=== PATIENT | female | born 1980 | race American Indian/Alaskan Native ===

== ENCOUNTER 2021-08-07 09:59 | Outpatient (CLI) | payer MEDICAID ==
--- NOTE | 2021-08-07 12:49 | XRay Report ---
CHEST 2 VIEWS INDICATION / CLINICAL INFORMATION: MORBID OBESITY. COMPARISON: None available. FINDINGS: SUPPORT DEVICES: None. HEART / MEDIASTINUM: No significant abnormality. LUNGS / PLEURA: No significant pulmonary or pleural abnormality. No pneumothorax. ADDITIONAL FINDINGS: No significant additional findings. IMPRESSION: 1. No acute findings. Signer Name: Anselmo Julian Jr, MD Signed: 08/07/2021 12:45 PM Workstation Name: [id number]
--- NOTE | 2021-08-07 12:50 | Fluoroscopy Report ---
BARIUM SWALLOW Indication: E66.01. Morbid obesity. Evaluation for gastric sleeve. Technique: Single and double contrast barium technique utilized to evaluate the esophagus. FINDINGS: To begin the exam, swallowing was evaluated in the lateral position under direct fluorosco py. Swallowing was normal. No mucosal irregularity, mass, mass effect, or critical stenosis. There were no abnormal tertiary c ontractions as seen with dysmotility. No gastroesophageal reflux. IMPRESSION: Unremarkable exam. Fluoroscopic time: 2.3 minutes Number of fluoroscopic images: 25 Signer Name: Anselmo Julian Jr, MD Signed: 08/07/2021 12:46 PM Workstation Name: [id number]
== END 2021-08-07 10:00 | disposition home or self-care (01) ==
LOC: FLUORO 09:59
PROVIDERS: ATTEND Surgery
DX: Z01.818 Encounter for other preprocedural examination (principal); E66.01 Morbid (severe) obesity due to excess calories; K30 Functional dyspepsia
CPT/HCPCS: 71046; 74220

== ENCOUNTER 2021-08-10 11:00 | Outpatient (CLI) | payer MEDICAID | END 2021-08-10 11:01 | disposition home or self-care (01) | LOC: SLR 11:00 | PROVIDERS: ATTEND Surgery | DX: G47.30 Sleep apnea, unspecified (principal) | CPT/HCPCS: G0399 ==

== ENCOUNTER 2021-09-08 07:29 | Day surgery (SDC) | payer MEDICAID ==
[~2021-09-08 07:29] MED LIST: SODIUM CHLORIDE 0.9% 1000 ML 1,000 ML IV SCH
[2021-09-08] MEDS ORDERED: WATER FOR IRRIG STERILE 1,000 ML BOTTLE ONE (08:25)
[2021-09-08] MEDS ORDERED: WATER FOR IRRIG STERILE 250 ML BOTTLE IR ONE (08:25)
--- NOTE | 2021-09-08 08:44 | Anesthesia Consultation ---
Anesthesia Consult and Med Hx Date of service: 09/08/21 - Airway Anesthetic Teeth Evaluation: Good, Caps (upper incisors) ROM Head & Neck: Adequate Mental/Hyoid Distance: Adequate Mallampati Class: Class III Intubation Access Assessment: Possibly Difficult - Pre-Operative Health Status ASA Pre-Surgery Classification: ASA3 Proposed Anesthetic Plan: MAC - Pulmonary Hx Smoking: No Hx Respiratory Symptoms: No - Cardiovascular System Hx Hypertension: Yes - Central Nervous System CVA: No - Endocrine Hx Renal Disease: No Hx Liver Disease: No Hx Insulin Dependent Diabetes: No Hx Non-Insulin Dependent Diabetes: No Hx Thyroid Disease: No - Other Systems Hx Obesity: Yes (BMI 47.3) - Additional Comments Anesthesia Medical History Comments: No hx anesthetic complications.
--- NOTE | 2021-09-08 08:44 | Anesthesia Day of Surgery ---
Anesthesia Day of Surgery - Day of Surgery Patient Examined: Yes Patient H&P Reviewed: Yes Patient is NPO: Yes
[2021-09-08] MEDS ORDERED: LIDOCAINE MPF (2%) 20 MG/1 ML VIAL 5 ML ONE (10:48)
[2021-09-08] MEDS ORDERED: propofoL 200 MG/20 ML VIAL IV ONE ×2 (10:48)
--- NOTE | 2021-09-08 10:53 | Operative Report ---
Operative Report Operative Report: DATE: 09/08/2021 SURGERY: Upper endoscopy. SURGEON: Nicolas Swift M.D. PROCEDURE: EGD with biopsy PRE OP DX: morbid obesity, GERD POST OP DX: morbid obesity, GERD TYPE OF ANESTHESIA: MAC. ESTIMATED BLOOD LOSS: None. COMPLICATIONS: None. SPECIMENS REMOVED: antral biopsy FINDINGS: 1. Small hiatal hernia. 2. Otherwise, normal esophagus, stomach and first portion of duodenum. INDICATIONS:INDICATION FOR PROCEDURE: Patient is a 41-year-old female with a long history of morbid obesity. She is planned to have a weight loss procedure and is here for preoperative planning EGD. PROCEDURE DETAILS: After consent was reviewed, patient was taken back to the operating room where patient was placed in the left lateral decubitus position and a bite block was placed in the mouth. After a time-out was called, MAC anesthesia was initiated. I then passed the endoscope into her oropharynx, into her esophagus, visualized the entire esophagus, which was all within normal limits. Z-line was noted to about 40cm from incisors. I then visualized the stomach and the first portion of the duodenum and there were no abnormalities I could clearly visualize except for antral gastritis. A cold forceps biopsy of the antrum was taken and will be sent to pathology to evaluate for H.pylori. I then retroflexed the scope in the stomach and visualized the hiatus and I could see a small hiatal hernia. I then desufflated the stomach and removed the endoscope. Patient tolerated procedure well and was transferred to recovery room in good and stable condition.
--- NOTE | 2021-09-08 10:54 | Discharge Summary ---
Providers - Providers Date of Admission: 09/08/2021 Date of discharge: 09/08/21 Attending physician: COLLEEN CHAMBERS MD Primary care physician: SERVANDO WAGGONER Hospitalization Reason for admission: pre-op planning egd Condition: Good Procedures: egd with bx Hospital course: Pt presented for a pre-op EGD as part of planning for up coming bariatric surgery. Procedure was uneventful and pt recovered well and was d ischarged to home. Disposition: 01 HOME / SELF CARE / HOMELESS Final Discharge Diagnosis (Prints w/discharge instructions): morbid obesity, gerd Core Measure Documentation - Palliative Care Palliative Care/ Comfort Measures: Not Applicable - Core Measures Any of the following diagnoses?: none Exam - Physical Exam Narrative exam: unchanged from pre-op Plan Activity: advance as tolerated Diet: low carbohydrate Follow up with: SERVANDO WAGGONER MD [Primary Care Provider] - 7 Days
[2021-09-08 14:33] VITALS: BP 132/80
--- NOTE | 2021-09-08 14:59 | Post Anesthesia Evaluation ---
- Post Anesthesia Evaluation Patient Participated: Yes Airway Patent: Yes Stable Respiratory Function: Yes Nausea/Vomiting: No Temp > 96.8F: Yes Pain Manageable: Yes Adequeate Hydration: Yes Anesthesia Complications: No
== END 2021-09-08 11:35 | disposition home or self-care (01) ==
LOC: GIO 07:29
PROVIDERS: ATTEND Surgery
DX: K21.9 Gastro-esophageal reflux disease without esophagitis (principal); E66.01 Morbid (severe) obesity due to excess calories; K44.9 Diaphragmatic hernia without obstruction or gangrene; K29.70 Gastritis, unspecified, without bleeding; K31.89 Other diseases of stomach and duodenum; I10 Essential (primary) hypertension; Z79.899 Other long term (current) drug therapy; Z68.42 Body mass index [BMI] 45.0-49.9, adult
CPT/HCPCS: 43239; 81025; 88305; 88342; J2704; J7030

== ENCOUNTER 2021-10-19 10:03 | Inpatient (IN) | payer MEDICAID ==
[2021-10-15 15:03] LABS: Alanine Aminotransferase 16 units/L (7-56); Albumin 4.3 g/dL (3.9-5); BUN/Creatinine Ratio 28; Blood Urea Nitrogen 22 mg/dL (7-17); Calcium 9.7 mg/dL (8.4-10.2); Hemolysis Index 0
[2021-10-15 15:20] LABS: Hematocrit 36.2 % (30.3-42.9); Hemoglobin 11.6 gm/dl (10.1-14.3); Red Blood Count 4.76 M/mm3 (3.65-5.03)
[2021-10-15 15:21] LABS: Mean Corpuscular HGB Conc 32 % (30-34); Mean Corpuscular Volume 76 fl (79-97); Platelet Count 314 K/mm3 (140-440); Red Cell Distribution Width 16.3 % (13.2-15.2)
[~2021-10-19 10:03] MED LIST changes: +ACETAMINOPHEN IV 1,000 MG/100 ML BOTTLE IV NR; +ENOXAPARIN 40 MG/0.4 ML INJ SUB-Q NR; +GABAPENTIN 500 MG/10 ML ORAL LIQD PO NR; +SCOPOLAMINE TRANSDERMAL PATCH 72 HR TD NR; -SODIUM CHLORIDE 0.9% 1000 ML 1,000 ML IV SCH; +methOCARBAMOL 1,000 MG in SODIUM CHLORIDE 0.9% 250ML 250 ML IV SCH; +metroNIDAZOLE/NS 500 MG/100 ML 500 MG/100 ML BAG IV NR
[2021-10-19] MEDS ORDERED: fentaNYL 100 MCG/2 ML INJ IV PRN (10:48)
[2021-10-19] MEDS ORDERED: ONDANSETRON 4 MG/2 ML INJ IV PRN ×2 (10:48→15:47)
--- NOTE | 2021-10-19 10:48 | Anesthesia Day of Surgery ---
Anesthesia Day of Surgery - Day of Surgery Patient Examined: Yes Patient H&P Reviewed: Yes Patient is NPO: Yes Beta Blockers: Yes Cardiac Clearance: Yes
--- NOTE | 2021-10-19 10:48 | Anesthesia Consultation ---
Anesthesia Consult and Med Hx Date of service: 10/19/21 - Airway Anesthetic Teeth Evaluation: Good, Caps (permanent; upper canines) ROM Head & Neck: Adequate Mental/Hyoid Distance: Adequate Mallampati Class: Class III Intubation Access Assessment: Possibly Difficult - Pre-Operative Health Status ASA Pre-Surgery Classification: ASA3 Proposed Anesthetic Plan: General - Pulmonary Hx Smoking: No Hx Respiratory Symptoms: No (airway hyperesonsiveness on PFTs) Hx Sleep Apnea: No (neg sleep study) - Cardiovascular System Hx Hypertension: Yes (took labetalol today) Hx Heart Attack/AMI: No (neg stress test) Hx Cardia Arrhythmia: No - Central Nervous System CVA: No - Endocrine Hx Renal Disease: No Hx Liver Disease: No Hx Insulin Dependent Diabetes: No Hx Non-Insulin Dependent Diabetes: No Hx Thyroid Disease: No - Hematic Hx Anemia: Yes - Other Systems Hx Obesity: Yes (BMI 46) - Additional Comments Anesthesia Medical History Comments: No hx anesthetic complications. Preop cardiac and pulmonary evals reviewed.
[2021-10-19] MEDS ORDERED: MAGNESIUM SULFATE 2 GM/50 ML BAG IV ONE (11:00)
[2021-10-19] MEDS ORDERED: SUGAMMADEX SODIUM 200 MG/2 ML VIAL IV ONE (11:00)
[2021-10-19] MEDS ORDERED: BUPIVACAINE/PF (0.25%) 2.5 MG/ML 30 ML VIAL INFILTRATI ONE ×2 (11:04→15:14)
[2021-10-19] MEDS ORDERED: LIDOCAINE 2%/EPINEPHRINE 1:100,000 VIAL (20 ML) INFILTRATI ONE (11:04)
[2021-10-19] MEDS: LACTATED RINGERS 1,000 ML IV SCH ×2 (11:15→21:36)
[2021-10-19] MEDS ORDERED: KETAMINE/STERILE WATER 50 MG/ML SYRINGE ONE (13:01)
[2021-10-19] MEDS ORDERED: ROCURONIUM 50 MG/5 ML INJ IV ONE ×2 (13:02→15:40)
[2021-10-19] MEDS ORDERED: ONDANSETRON 4 MG/2 ML INJ ONE (13:02)
[2021-10-19] MEDS ORDERED: dexAMETHasone 20 MG/5 ML VIAL ONE (13:02)
[2021-10-19] MEDS ORDERED: MIDAZOLAM 2 MG/2 ML INJ ONE (13:45)
[2021-10-19] MEDS ORDERED: SODIUM CHLORIDE 0.9% IRR 1,500 ML BOTTLE IR ONE (15:13)
[2021-10-19] MEDS ORDERED: LIDOCAINE 1%/EPINEPHRINE 1:100,000 VIAL (20 ML) INFILTRATI ONE (15:14)
[2021-10-19] MEDS ORDERED: LACTATED RINGERS 1,000 ML ONE (15:40)
[2021-10-19] MEDS ORDERED: KETOROLAC 30 MG/1 ML INJ ONE (15:40)
[2021-10-19] MEDS ORDERED: HYDROmorphone 0.5 MG/0.5 ML INJ IV PRN ×2 (15:47)
[2021-10-19] MEDS ORDERED: HYDROcodone/Acetaminophen 7.5-325MG-15ML ORAL LIQD PO PRN (15:47)
[2021-10-19] MEDS ORDERED: METOCLOPRAMIDE 10 MG/2 ML INJ IV PRN (15:47)
[2021-10-19] MEDS ORDERED: hydrALAZINE 20 MG/1 ML INJ IV PRN (15:47)
[2021-10-19] MEDS ORDERED: ceFAZolin/NS 1 GM/50 ML 1 GM/50 ML BAG IV SCH (16:00)
[2021-10-19] MEDS ORDERED: LACTATED RINGERS 1,000 ML IV SCH (16:00)
[2021-10-19] MEDS ORDERED: KETOROLAC 30 MG/1 ML INJ IV SCH (16:00)
[2021-10-19] MEDS ORDERED: metroNIDAZOLE/NS 500 MG/100 ML 500 MG/100 ML BAG IV SCH (16:00)
[2021-10-19] MEDS ORDERED: ACETAMINOPHEN IV 1,000 MG/100 ML BOTTLE IV SCH (16:00)
--- NOTE | 2021-10-19 16:00 | Operative Report ---
Operative Report Operative Report: DATE:10/19/2021 Surgeon: Nicolas Swift MD [place] surgeon: Pre-op Dx: morbid obesity Post-op Dx: morbid obesity Procedure: 1. laparoscopic sleeve gastrectomy, 2. hiatal hernia repair Anesthesia: GETA and TAP block EBL: <10ml Specimen: gastric remnant Complication: none immediate Indication: 41 year old female with a history of morbid obesity . Pt is here for sleeve gastrectomy for weight loss to achieve healthier weight and improve or resolve his co-morbidities. She expressed understanding of the risks and benefits. PROCEDURE IN DETAIL: After consent was reviewed, patient was taken back to the operating room, where patient was placed supine on the bed with both arms out. The patient's legs were doubly strapped to the bed. Patient had a foot board in place. Patient had a body warmer placed by anesthesia. General anesthesia was induced with successful endotracheal intubation. Patient was then prepped and draped in normal sterile surgical fashion. After a time-out was called, I made a stab incision in the left subcostal area and placed a Veress needle through this incision and insufflated the abdomen to 15 mmHg pressure. I then counted down a handsbreadth below the xiphoid process in the midline and slightly left lateral injected local anesthetic and made about 1 cm transverse incision. I then used a 5-mm Optiview trocar to enter into the abdomen. There was no gross injury to any intra-abdominal structures. I then placed a 30-degree scope through this port and inspected the abdomen. I then placed a 8-mm port in the right upper quadrant, and 1 5mm in the epigastric area below the costovertebral angle. I then placed a 15-mm port about a handsbreadth in the right mid abdomen. After which a 5mm port was placed in left upper quadrant port along the anterior axillary line in a similar fashion. A liver retractor was placed to the epigastric port to elevate the left lateral lobe and liver. There was a small hiatal hernia appreciated that was accentuated with right and left crural dissection. Hiatal hernia sac was dissected from the crura until the GE junction was resting about 2cm below the level of the diaphragm without tension. An anterior crura-plasty was preformed a U-stitch using surgidac suture. The anterior gastric fat pad was excised. Starting approximately 6 cm proximal to the pylorus, using a Enseal device the short gastrics were taken all the way to the left randal. Once the lateral portion of the stomach was mobile anesthesia passed a 40 [place] bougie along the medial aspect to act as a stent. Using serial firings of endoscopic stapler to gold, followed by 4 blue, the lateral portion of the stomach was transected making sure to did not close to the 2 cm to the incisura. All staple loads were supported with Ethicon buttress strips. The sleeve stomach was seen to be without kink obstruction or twisting. There was no significant bleeding appreciated except for a slight ooze at the most distal portion of the staple line. Bleeding was minimal and easily controlled with minimal cautery. Vistaseal was then sprayed along the entirety of the staple line. The liver retractor was removed. A TAP block was performed with 60ml of 0.25% marcaine along bilateral mid axillary lines starting from the subcostal region to just below the level of the umbilicus This was after the gastric remnant was grasped and pulled into the 15 mm trocar site. The stomach was extracted via the 15 mm trocar site. After the fascia had to be stretched with a Elke clamp to easily remove the stomach, the fascia was closed using a jaclyn gisele device at the level of the fascia with an 0 PDS. trocars were removed under direct visualization. All skin incisions were closed with 4-0 Monocryl followed by Dermabond. Patient was awoken, extubated, and taken to recovery stable condition. All counts were correct.
[2021-10-19] MEDS: PANTOPRAZOLE 40 MG INJ IV SCH (16:48)
[2021-10-19] MEDS: KETOROLAC 30 MG/1 ML INJ IV SCH (21:35)
[2021-10-19] MEDS: metroNIDAZOLE/NS 500 MG/100 ML 500 MG/100 ML BAG IV SCH (21:35)
[2021-10-19] MEDS: ceFAZolin/NS 1 GM/50 ML 1 GM/50 ML BAG IV SCH (23:06)
[2021-10-20] MEDS: ACETAMINOPHEN IV 1,000 MG/100 ML BOTTLE IV SCH ×2 (02:24→10:00)
[2021-10-20] MEDS: SIMETHICONE 80 MG CHEW TAB PO PRN ×2 (02:25→10:53)
[2021-10-20] MEDS: KETOROLAC 30 MG/1 ML INJ IV SCH ×3 (04:30→16:39)
[2021-10-20] MEDS: LACTATED RINGERS 1,000 ML IV SCH (05:38)
[2021-10-20] MEDS: ceFAZolin/NS 1 GM/50 ML 1 GM/50 ML BAG IV SCH (05:39)
[2021-10-20] MEDS: metroNIDAZOLE/NS 500 MG/100 ML 500 MG/100 ML BAG IV SCH ×2 (05:40→16:46)
[2021-10-20 08:53] LABS: Basophils # (Auto) 0.1 K/mm3 (0.0-0.1); Basophils % (Auto) 0.6 % (0.0-1.8); Hemoglobin 9.9 gm/dl (10.1-14.3); Lymphocytes # (Auto) 1.4 K/mm3 (1.2-5.4); Lymphocytes % (Auto) 9.9 % (13.4-35.0); Monocytes # (Auto) 0.8 K/mm3 (0.0-0.8); Monocytes % (Auto) 5.6 % (0.0-7.3)
[2021-10-20 09:01] LABS: Red Blood Count 4.17 M/mm3 (3.65-5.03)
[2021-10-20 09:02] LABS: Mean Corpuscular Volume 77 fl (79-97)
[2021-10-20 09:03] LABS: Mean Corpuscular HGB Conc 31 % (30-34); Platelet Count 277 K/mm3 (140-440); Red Cell Distribution Width 16.6 % (13.2-15.2)
[2021-10-20 09:18] LABS: Alanine Aminotransferase 19 units/L (7-56); BUN/Creatinine Ratio 11; Blood Urea Nitrogen 9 mg/dL (7-17); Calcium 9.2 mg/dL (8.4-10.2); Hemolysis Index 21
[2021-10-20] MEDS ORDERED: ENOXAPARIN 40 MG/0.4 ML INJ SUB-Q SCH (10:00)
[2021-10-20] MEDS: PANTOPRAZOLE 40 MG INJ IV SCH (11:31)
--- NOTE | 2021-10-20 15:12 | Post Anesthesia Evaluation ---
- Post Anesthesia Evaluation Patient Participated: Yes Airway Patent: Yes Stable Respiratory Function: Yes Nausea/Vomiting: No Temp > 96.8F: Yes Pain Manageable: Yes Adequeate Hydration: Yes Anesthesia Complications: No Block Receding Appropriately: Not Applicable Patient on Ventilator: No
[2021-10-20 16:19] VITALS: BP 125/70
--- NOTE | 2021-10-20 17:04 | Discharge Summary ---
Providers - Providers Date of Admission: 10/19/21 10:03 Date of discharge: 10/20/21 Attending physician: COLLEEN CHAMBERS MD 10/19/21 15:48 Physical Therapy Evaluation and Treat [CONS] Routine Comment: Reason For Exam: post op bariatric surgery Primary care physician: SERVANDO WAGGONER Hospitalization Reason for admission: s/p bariatric surgery Condition: Good Procedures: lap gastric sleeve with hiatal hernia repair Hospital course: Patient had an uneventful lap gastric sleeve and hiatal hernia repair for treatment of morbid obesity. Patient recovered well remaining afebrile stable. Patient was tolerating clear liquids and intermittently 30 ounces of oral intake easily. She was ambulating well with adequate pain control. Patient was discharged on postop day #1 showing no gross clinical signs of leak or bleeding. Patient will follow-up in the office in 2 weeks. Disposition: HOME / SELF CARE / HOMELESS Final Discharge Diagnosis (Prints w/discharge instructions): Morbid obesity, reflux Core Measure Documentation - Palliative Care Palliative Care/ Comfort Measures: Not Applicable - Core Measures Any of the following diagnoses?: none Exam - Constitutional Vitals: Temp Pulse Resp BP Pulse Ox 97.5 F L 75 17 125/70 98 10/20/21 16:13 10/20/21 16:13 10/20/21 16:13 10/20/21 16:13 10/20/21 16:13 General appearance: Present: no acute distress, obese - EENT Eyes: Present: PERRL ENT: hearing intact - Respiratory Respiratory effort: normal - Cardiovascular Heart Sounds: Present: S1 & S2 - Extremities Extremities: no ischemia - Abdominal General gastrointestinal: Present: soft, non-tender Plan Activity: advance as tolerated Diet: clear liquids Wound: open to air, keep clean and dry Follow up with: SERVANDO WAGGONER MD [Primary Care Provider] - 7 Days
[2021-10-22] MEDS ORDERED: SCOPOLAMINE TRANSDERMAL PATCH 72 HR TD SCH (10:00)
== END 2021-10-20 18:25 | disposition home or self-care (01) | DRG 621 ==
LOC: 3A 10:03 → 4A 17:39
PROVIDERS: ADMIT Surgery; ATTEND Surgery
PROC: 0DB64Z3 Excision of Stomach, Percutaneous Endoscopic Approach, Vertical (ICD-10-PCS; principal; 2021-10-19)
PROC: 0BQT4ZZ Repair Diaphragm, Percutaneous Endoscopic Approach (ICD-10-PCS; 2021-10-19)
DX: E66.01 Morbid (severe) obesity due to excess calories (principal); Z20.822 Contact with and (suspected) exposure to COVID-19; Z68.42 Body mass index [BMI] 45.0-49.9, adult; I10 Essential (primary) hypertension; K21.9 Gastro-esophageal reflux disease without esophagitis; K44.9 Diaphragmatic hernia without obstruction or gangrene
CPT/HCPCS: 36415; 80053; 84703; 85025; 85027; 88307; G0378; J3490; J7121; J7517; C9113; J0131; J0690; J1100; J1650; J1885; J2250; J2405; J2704; J3475; J7120; U0003